=== PATIENT | female | born 1955 | race Caucasian/White ===

== ENCOUNTER 2019-11-14 09:08 | Outpatient (CLI) | payer MEDICARE, BC ==
--- NOTE | 2019-11-14 14:06 | RAD ---
EXAM: Chest 2 views: HISTORY: Preoperative evaluation COMPARISON: None. FINDINGS: Heart size:Borderline Lungs:Clear of acute process. Atherosclerotic changes of the aorta. No confluent lobar pneumonia, overt edema, pleural effusion, pneumothorax, or other significant acute process. IMPRESSION: Mild atherosclerosis of the aorta. No acute intrathoracic disease.
[2019-11-14 14:13] LABS: #Basophils 0.1 thou/uL (0.0-0.2); #Eosinphils 0.1 thou/uL (0.0-0.7); #Lymphocytes 4.4 thou/uL (1.20-3.40); #Monocytes 0.8 thou/uL (0.11-0.59); %Basophils 0.4 % (0.0-1.0); %Eosinophils 1.1 % (0.0-10.0); %Lymphocytes 32.9 % (21.0-51.0); %Monocytes 6.2 % (0.0-10.0); %Neutrophils 59.4 % (42.0-75.0); Hemoglobin 13.9 g/dL (12.0-16.0); Mean Corpuscular Hemoglobin 31.4 pg (27.0-31.0); Mean Corpuscular Volume 92.5 fL (78.0-98.0); Mean Platelet Volume 8.4 fL (7.4-10.4); Platelet Count 248 thou/uL (130-400); Red Blood Cell (RBC) Count 4.43 mill/uL (4.20-5.40); White Blood Cell (WBC) Count 13.4 thou/uL (4.8-10.8)
[2019-11-14 14:17] LABS: INR-International Normal Ratio 0.9
[2019-11-14 14:33] LABS: Bilirubin Negative (Negative); Blood, Urine Trace (Negative); Clarity Clear (Clear); Glucose, Urine (Dipstick) Normal (Negative); Leukocyte Negative Leu/uL (Negative); Nitrite Negative (Negative); Protein, Urine (Dipstick) Negative (Neg-Trace); RBC/HPF 0-3 HPF (0-3); Squamous Epithelial 0-3 HPF (0-3); Urobilinogen Normal mg/dL (Less than 2); WBC/HPF 0-3 HPF (0-3)
[2019-11-14 14:34] LABS: Anion Gap 9 mmol/L (10-20); BUN (Urea Nitrogen) 10 mg/dL (9.8-20.1); Calc. Creatinine Clearance 0 mL/min (70-130); Calcium 9.3 mg/dL (7.8-10.44); Carbon Dioxide 29 mmol/L (23-31); Chloride 104 mmol/L (98-107); Estimated GFR-MDRD 90; Glucose 92 mg/dL (80-115); Potassium 4.1 mmol/L (3.5-5.1); Sodium 138 mmol/L (136-145)
[2019-11-14 14:53] LABS: Bacteria/HPF 1+ HPF (None Seen)
== END 2019-11-14 09:09 | disposition home or self-care (01) ==
LOC: LABBT 09:08
PROVIDERS: ATTEND Orthopaedic Surgery
DX: Z01.818 Encounter for other preprocedural examination (principal); M17.12 Unilateral primary osteoarthritis, left knee; I70.0 Atherosclerosis of aorta
CPT/HCPCS: 71046; 80048; 81001; 85025; 85610; 87081; 93005; 93010

== ENCOUNTER 2019-11-25 07:04 | Day surgery (SDC) | payer MEDICARE, BC ==
[2019-11-14 13:01] VITALS: BMI 27.3
[2019-11-25] MEDS ORDERED: Sodium Chloride 0.9% 100 ML ONE ×2 (08:02→12:13)
[2019-11-25] MEDS ORDERED: Tranexamic Acid 1,000 MG/10 ML VIAL ONE ×2 (08:02→12:12)
[2019-11-25] MEDS ORDERED: Vancomycin 1.5 GRAM/300 ML BAG 1.5 GM/300 ML BAG ONE (08:02)
[2019-11-25] MEDS ORDERED: Midazolam HCl 2 mg/2 ml Vial ONE (08:03)
[2019-11-25] MEDS ORDERED: Fentanyl 100 MCG/2 ML VIAL ONE ×5 (08:03→11:59)
[2019-11-25] MEDS ORDERED: Bupivacaine PF 0.5% 30 ML VIAL ONE (09:24)
[2019-11-25] MEDS ORDERED: Ondansetron PF 4 MG/2 ML Vial ONE (09:28)
[2019-11-25] MEDS ORDERED: Lidocaine 1% PF 5 ML VIAL ONE (09:28)
[2019-11-25] MEDS ORDERED: Ketorolac Tromethamine 30 MG/ML VIAL ONE (09:28)
[2019-11-25] MEDS ORDERED: Metoclopramide HCl 10 MG/2 ML VIAL ONE (09:28)
[2019-11-25] MEDS ORDERED: Bupivacaine HCl 0.5%/Epinephrine 1:200,000/PF 30 ml Vial ONE (09:28)
[2019-11-25] MEDS ORDERED: Ropivacaine 0.2% HCl/PF (40 MG/20 ML VIAL) ONE (09:28)
[2019-11-25] MEDS ORDERED: PROPOFOL 200 MG/20 ML VIAL ONE (09:28)
[2019-11-25] MEDS ORDERED: Succinylcholine Chloride 20 MG/ML 10 ml SYRINGE FS ONE (09:28)
[2019-11-25] MEDS ORDERED: Ropivacaine HCl/PF 250 ML in Premix Bag 1 BAG NERVE BLCK SCH (09:56)
[2019-11-25] MEDS ORDERED: Zolpidem Tartrate 5 MG TAB PO PRN ×2 (09:56→10:04)
[2019-11-25] MEDS ORDERED: Ondansetron PF 4 MG/2 ML Vial IVP PRN (09:56)
[2019-11-25] MEDS ORDERED: Acetaminophen 325 MG TAB PO PRN ×2 (09:56→10:04)
[2019-11-25] MEDS ORDERED: traMADol HCl 50 MG TAB PO PRN (09:56)
[2019-11-25] MEDS ORDERED: HYDROcodone/Acetaminophen 10/325 mg Tablet PO PRN (09:56)
[2019-11-25] MEDS ORDERED: Promethazine HCl 25 MG/ML VIAL IM PRN ×3 (09:56→11:13)
[2019-11-25] MEDS ORDERED: Fentanyl 100 MCG/2 ML VIAL IV PRN (09:57)
[2019-11-25] MEDS ORDERED: diphenhydrAMINE 25 MG CAP PO PRN (10:04)
[2019-11-25] MEDS ORDERED: Pramipexole Di-HCl 0.25 MG TAB PO PRN (10:06)
[2019-11-25] MEDS ORDERED: Tranexamic Acid 1,000 MG in Sodium Chloride 0.9% 100 ML IVPB SCH (10:15)
[2019-11-25] MEDS ORDERED: Ondansetron HCl/PF 4 MG/2 ML Vial IVP PRN (11:13)
[2019-11-25] MEDS ORDERED: Promethazine HCl 25 MG/ML VIAL SLOW IVP PRN (11:13)
--- NOTE | 2019-11-25 12:09 | OP ---
DATE OF PROCEDURE: 11/25/2019 INSULATION AND FLOORING ASSEMBLER: Killian Mar PA-C PREOPERATIVE DIAGNOSIS: Left knee osteoarthrosis. POSTOPERATIVE DIAGNOSIS: Left knee osteoarthrosis. PROCEDURE PERFORMED: Left total knee replacement using CogniK pinless navigation. ESTIMATED BLOOD LOSS: Minimal. COMPLICATIONS: None. ANESTHESIA: The patient did have a general anesthetic as well as a preoperative block. IMPLANTS: On the left knee, Triathlon total knee system, a size 4 cruciate-retaining left femur, size 4 primary tibial baseplate, 4 x 9 mm CS X3 tibial bearing and an asymmetric 29 x 9 X3 patella. DISPOSITION: She went to recovery room in stable condition. INDICATIONS: This is a 64-year-old female, who has dealt with knee arthritis for years and at this time wished to have her knee replaced. PROCEDURE IN DETAIL: After all appropriate consent forms were explained and signed, the patient was taken back to the operating room and at this time was given general anesthetic. Once the level of anesthesia was appropriate, a well-padded tourniquet was placed on the left leg, and the leg was then prepped and draped in standard surgical fashion. The limb was exsanguinated and tourniquet taken up to 300 mmHg. Midline incision was made with a 10 blade down through the skin and subcutaneous tissue. Bovie electrocautery was used to coagulate any brisk venous bleeding. A new blade was used to make a medial parapatellar arthrotomy. Small subperiosteal release was performed medially and excess fat pad was removed. The knee was flexed up to gain access to the femur. The femur was navigated and distal femoral resection was made. Epicondylar access was used to align our sizing jig and this was pinned in place. We sized our femur to be a size 4 cruciate-retaining left femur. 4:1 cutting block was applied and pinned. Anterior and posterior chamfer cuts were then made. We navigated out our proximal tibia and made our proximal tibial resection. Spreaders were used to remove any posterior osteophytes off the back of the femur as well as remaining meniscal tissue. A long alignment caro was then used to achieve correct rotation of our tibial baseplate and a size 4 primary tibial baseplate was chosen. This was pinned in place. We trialed the polyethylene and a 4 x 9 mm CS X3 tibial bearing polyethylene gave us full extension and good stability throughout range of motion. Two towel clips and a saw were used to cut our patella. Three lug nuts were drilled and an asymmetric 29 x 9 X3 patella was trialed which sat nicely in the trochlear groove. We then drilled our femur and punched our tibia. All components were removed. The knee was thoroughly irrigated and dried. Cement was mixed into the cement gun on the back table. Components were then placed. The knee was held out in full extension until the cement had dried. All excess bone cement was removed. Multiple #2 Vicryl stitches as well as a Quill were used to close our extensor mechanism. 0 Quill followed by a running Monoderm was then used to close the skin. Surgicel glue was then used on the skin. Once this had dried, soft tissue dressing was applied to the limb, tourniquet was let down, and the toes pinked up nicely. The patient was then awakened and taken to the recovery room in stable condition. All counts were correct at the end of the case. The patient did receive preoperative IV antibiotics. The patient was injected with Marcaine for postoperative pain relief. Job ID: [id number]
[2019-11-25] MEDS: Sodium Chloride 0.9% 1,000 ML IV SCH ×2 (13:20→22:44)
[2019-11-25] MEDS: Ketorolac Tromethamine 30 MG/ML VIAL IVP SCH ×3 (15:36→23:20)
[2019-11-25] MEDS: traMADol HCl 50 MG TAB PO PRN ×2 (15:37→23:25)
[2019-11-25] MEDS: CEFAZOLIN 2 GM in Premix Bag 1 BAG IVPB SCH ×2 (15:37→23:19)
--- NOTE | 2019-11-25 17:56 | PDOC.HOSPP ---
- Subjective Encounter Date: 11/25/19 Encounter Time: 16:00 Subjective: pt is admitted for left total knee replacement I am consulted for medical management, Patient seen and examined. No new complaints. - Objective Vital Signs & Weight: Vital Signs (12 hours) Temp Pulse Resp BP Pulse Ox 11/25/19 13:20 97.1 F L 49 L 18 155/63 H 100 Weight Weight 185 lb I&O: 11/24/19 11/25/19 11/26/19 06:59 06:59 06:59 Intake Total 120 Balance 120 Additional Labs: pre operative labs reviewed Hospitalist ROS - Review of Systems ENT: denies: ear pain, ear discharge, nose pain, nose discharge, nose congestion , mouth pain, mouth swelling, throat pain, throat swelling, other Respiratory: denies: cough, dry, shortness of breath, hemoptysis, SOB with excertion, pleuritic pain, sputum, wheezing, other Cardiovascular: denies: chest pain, palpitations, orthopnea, paroxysmal noc. dyspnea, edema, light headedness, other Gastrointestinal: denies: nausea, vomiting, abdominal pain, diarrhea, constipation, melena, hematochezia, other Genitourinary: denies: dysuria, frequency, incontinence, hematuria, retention, other Musculoskeletal: denies: neck pain, shoulder pain, arm pain, back pain, hand pain, leg pain, foot pain, other - Medication Medications: Active Medications Generic Name Dose Route Start Last Admin Trade Name Freq PRN Reason Stop Dose Admin Cefazolin Sodium/Dextrose 2 gm 50 mls @ 100 mls/hr 11/25/19 16:00 11/25/19 15 :37 / Device IVPB 11/26/19 00:28 50 mls [id number] NOEL Administration Sodium Chloride 1,000 mls @ 100 mls/hr 11/25/19 10:15 11/25/19 13:20 Normal Saline 0.9% IV Not Given .Q10H NOEL Ketorolac Tromethamine 30 mg 11/25/19 12:00 11/25/19 17:14 Toradol IVP 11/27/19 06:01 30 mg Q6HR NOEL Administration Tramadol HCl 100 mg 11/25/19 09:56 11/25/19 15:37 Ultram PO 100 mg Q6H PRN Administration Moderate Pain 4-6 - Exam General Appearance: NAD, awake alert Eye: PERRL, anicteric sclera ENT: normocephalic atraumatic, no oropharyngeal lesions Neck: supple, symmetric, no JVD, no thyromegaly Heart: RRR, no murmur, no gallops, no rubs Respiratory: CTAB, no wheezes, no rales Gastrointestinal: soft, non-tender, non-distended, normal bowel sounds Extremities: no cyanosis, no clubbing Extremities - other findings: left knee with dressing, nerve block in place Skin: normal turgor, no lesions Neurological: cranial nerve grossly intact, no focal deficits Musculoskeletal: normal tone, normal strength Psychiatric: normal affect, normal behavior, A&O x 3 Hosp A/P (1) Status post total left knee replacement Code(s): Z96.652 - PRESENCE OF LEFT ARTIFICIAL KNEE JOINT Status: Acute (2) Restless leg syndrome Status: Chronic (3) Osteoarthritis Code(s): M19.90 - UNSPECIFIED OSTEOARTHRITIS, UNSPECIFIED SITE Status: Chronic - Plan old records reviewed/req, plan discussed w/ family, PT/OT medication reviewed, symptomatic care, supportive care, consider ch removal as per protocol, PT/OT as per [facility] protocol Home medication reconciled, discussed with family nerve block as per anesthesia, aspirin for DVT prophylaxis pain control with pain meds as tolerated.
[2019-11-25] MEDS ORDERED: Vancomycin HCl 1.5 GM in Sodium Chloride 0.9% 250 ML 300 ML IVPB SCH (20:00)
[2019-11-25] MEDS: Aspirin 81 mg Enteric Coated Tablet PO SCH (20:22)
[2019-11-26] MEDS: HYDROcodone/Acetaminophen 10/325 mg Tablet PO PRN ×2 (02:47→10:51)
[2019-11-26] MEDS: Ondansetron PF 4 MG/2 ML Vial IVP PRN ×2 (03:11→13:00)
[2019-11-26] MEDS: Ketorolac Tromethamine 30 MG/ML VIAL IVP SCH ×4 (05:49→23:43)
[2019-11-26 06:14] LABS: Hemoglobin 10.5 g/dL (12.0-16.0); Mean Corpuscular HGB CONC 33.5 g/dL (32.0-36.0); Mean Corpuscular Hemoglobin 31.2 pg (27.0-31.0); Mean Corpuscular Volume 93.1 fL (78.0-98.0); Mean Platelet Volume 8.6 fL (7.4-10.4); Platelet Count 195 thou/uL (130-400); RBC Distribution Width 11.1 % (11.5-14.5); Red Blood Cell (RBC) Count 3.35 mill/uL (4.20-5.40); White Blood Cell (WBC) Count 17.1 thou/uL (4.8-10.8)
[2019-11-26] MEDS: Multivitamin W/ Minerals 1 TAB PO SCH (08:45)
[2019-11-26] MEDS: Aspirin 81 mg Enteric Coated Tablet PO SCH ×2 (08:45→20:23)
[2019-11-26] MEDS: Senokot S 8.6-50 MG TAB PO SCH ×2 (08:45→20:23)
[2019-11-26] MEDS: Ferrous Gluconate 324 MG TAB PO SCH ×2 (08:45→18:09)
[2019-11-26] MEDS: traMADol HCl 50 MG TAB PO PRN ×2 (08:46→16:43)
[2019-11-26] MEDS: Sodium Chloride 0.9% 1,000 ML IV SCH ×2 (08:51→10:25)
--- NOTE | 2019-11-26 12:12 | PDOC.HOSPP ---
- Subjective Encounter Date: 11/26/19 Encounter Time: 09:15 Subjective: no chest pain or sob or palp mild pain in her knee ambulated 60ft yesterday - Objective Vital Signs & Weight: Vital Signs (12 hours) Temp Pulse Resp BP Pulse Ox 11/26/19 07:40 95 11/26/19 07:21 98.2 F 67 18 109/54 L 98 11/26/19 03:16 98.3 F 63 16 106/59 L 95 11/26/19 00:30 98.2 F 62 17 143/70 H 95 Weight Weight 185 lb I&O: 11/25/19 11/26/19 11/27/19 06:59 06:59 06:59 Intake Total 960 300 Output Total 900 Balance 60 300 Result Diagrams: 11/26/19 05:17 Hospitalist ROS - Medication Medications: Active Medications Generic Name Dose Route Start Last Admin Trade Name Freq PRN Reason Stop Dose Admin Hydrocodone Bitart/Acetaminophen 1 tab 11/25/19 09:56 11/25/19 20:21 [place] 10/325 PO 1 tab Q4H PRN Administration Pain (1-3) Hydrocodone Bitart/Acetaminophen 2 tab 11/25/19 09:56 11/26/19 10:51 [place] 10/325 PO 2 tab Q4H PRN Administration PAIN (4-6) Aspirin 81 mg 11/25/19 21:00 11/26/19 08:45 Ecotrin PO 81 mg BID NOEL Administration Ferrous Gluconate 324 mg 11/26/19 08:00 11/26/19 08:45 Fergon PO 324 mg BID-WM NOEL Administration Ropivacaine 250 ml/ Device 250 mls @ 10 mls/hr 11/25/19 09:56 11/26/19 10:57 NERVE BLCK 11/28/19 09:55 250 mls INF NOEL Administration Sodium Chloride 1,000 mls @ 100 mls/hr 11/25/19 10:15 11/26/19 10:25 Normal Saline 0.9% IV Not Given .Q10H NOLE Iron/Minerals/Multivitamins 1 tab 11/26/19 09:00 11/26/19 08:45 Theragran M PO 1 tab DAILY NOEL Administration Ketorolac Tromethamine 30 mg 11/25/19 12:00 11/26/19 05:49 Toradol IVP 11/27/19 06:01 30 mg Q6HR NOEL Administration Ondansetron HCl 4 mg 11/25/19 10:04 11/26/19 03:11 Zofran IVP 4 mg Q6H PRN Administration Nausea/Vomiting Senna/Docusate Sodium 2 tab 11/26/19 09:00 11/26/19 08:45 Senokot S PO 2 tab BID NOEL Administration Tramadol HCl 100 mg 11/25/19 09:56 11/26/19 08:46 Ultram PO 100 mg Q6H PRN Administration Moderate Pain 4-6 - Exam General Appearance: awake alert Eye: PERRL, anicteric sclera ENT: no oropharyngeal lesions, moist mucosa Neck: supple, no JVD Heart: RRR, no murmur Respiratory: no wheezes, no rales Gastrointestinal: soft, non-tender, non-distended, normal bowel sounds Extremities: no edema Neurological: cranial nerve grossly intact, no focal deficits Psychiatric: normal affect, A&O x 3 Hosp A/P (1) Status post total left knee replacement Code(s): Z96.652 - PRESENCE OF LEFT ARTIFICIAL KNEE JOINT Status: Acute (2) Osteoarthritis Code(s): M19.90 - UNSPECIFIED OSTEOARTHRITIS, UNSPECIFIED SITE Status: Chronic Qualifiers: Osteoarthritis location: multiple joints Osteoarthritis type: primary Qualified Code(s): M15.0 - Primary generalized (osteo)arthritis (3) Restless leg syndrome Status: Chronic - Plan hemostable is recovering well post surgery continue asp bid, mirapex on ropivacaine nr block, fentanyl, toradol prn
[2019-11-27] MEDS: Sodium Chloride 0.9% 1,000 ML IV SCH ×2 (03:51→13:40)
[2019-11-27] MEDS: traMADol HCl 50 MG TAB PO PRN ×3 (03:54→16:39)
[2019-11-27 05:44] LABS: Hemoglobin 9.7 g/dL (12.0-16.0); Mean Corpuscular HGB CONC 34.8 g/dL (32.0-36.0); Mean Corpuscular Volume 92.1 fL (78.0-98.0); Mean Platelet Volume 8.1 fL (7.4-10.4); Platelet Count 209 thou/uL (130-400); Red Blood Cell (RBC) Count 3.01 mill/uL (4.20-5.40); White Blood Cell (WBC) Count 19.2 thou/uL (4.8-10.8)
[2019-11-27] MEDS: Ketorolac Tromethamine 30 MG/ML VIAL IVP SCH (06:15)
[2019-11-27] MEDS: Ferrous Gluconate 324 MG TAB PO SCH (08:01)
[2019-11-27] MEDS: Senokot S 8.6-50 MG TAB PO SCH (08:01)
[2019-11-27] MEDS: Aspirin 81 mg Enteric Coated Tablet PO SCH (08:01)
[2019-11-27] MEDS: Multivitamin W/ Minerals 1 TAB PO SCH (08:01)
--- NOTE | 2019-11-27 09:17 | ULT ---
VENOUS DOPPLER ULTRASOUND OF THE LEFT LOWER EXTREMITY: Date: 11/27/2019 HISTORY: Left lower extremity pain. TECHNIQUE: Hernandez scale ultrasound with color flow and spectral Doppler imaging of the deep venous system of the l eft lower extremity is performed. FINDINGS: There is good flow, compression, and augmentation noted in the left common femoral, femoral, deep fem oral, popliteal, posterior tibial, and greater saphenous veins. IMPRESSION: No evidence of deep venous thrombosis in the left lower extremity. POS: [facility]
--- NOTE | 2019-11-27 13:42 | PDOC.HOSPP ---
- Subjective Encounter Date: 11/27/19 Encounter Time: 09:00 Subjective: no sob or pain is ambulating well - Objective Vital Signs & Weight: Vital Signs (12 hours) Temp Pulse Resp BP Pulse Ox 11/27/19 11:15 97.6 F 83 18 175/94 H 94 L 11/27/19 08:00 93 L 11/27/19 07:27 98.5 F 94 16 139/77 93 L 11/27/19 03:55 98.6 F 80 16 160/81 H 93 L Weight Admit Weight 185 lb Weight 185 lb I&O: 11/26/19 11/27/19 11/28/19 06:59 06:59 06:59 Intake Total 960 1640 Output Total 900 Balance 60 1640 Result Diagrams: 11/27/19 05:17 Hospitalist ROS - Medication Medications: Active Medications Generic Name Dose Route Start Last Admin Trade Name Freq PRN Reason Stop Dose Admin Hydrocodone Bitart/Acetaminophen 1 tab 11/25/19 09:56 11/25/19 20:21 [place] 10/325 PO 1 tab Q4H PRN Administration Pain (1-3) Hydrocodone Bitart/Acetaminophen 2 tab 11/25/19 09:56 11/26/19 10:51 [place] 10/325 PO 2 tab Q4H PRN Administration PAIN (4-6) Aspirin 81 mg 11/25/19 21:00 11/27/19 08:01 Ecotrin PO 81 mg BID NOEL Administration Ferrous Gluconate 324 mg 11/26/19 08:00 11/27/19 08:01 Fergon PO 324 mg BID-WM NOEL Administration Ropivacaine 250 ml/ Device 250 mls @ 10 mls/hr 11/25/19 09:56 11/26/19 10:57 NERVE BLCK 11/28/19 09:55 250 mls INF NOEL Administration Sodium Chloride 1,000 mls @ 100 mls/hr 11/25/19 10:15 11/27/19 03:51 Normal Saline 0.9% IV Not Given .Q10H NOEL Iron/Minerals/Multivitamins 1 tab 11/26/19 09:00 11/27/19 08:01 Theragran M PO 1 tab DAILY NOEL Administration Ondansetron HCl 4 mg 11/25/19 10:04 11/26/19 13:00 Zofran IVP 4 mg Q6H PRN Administration Nausea/Vomiting Senna/Docusate Sodium 2 tab 11/26/19 09:00 11/27/19 08:01 Senokot S PO 2 tab BID NOEL Administration Sodium Chloride 10 ml 11/25/19 10:04 11/26/19 18:01 Flush - Normal Saline IVF 10 ml PRN PRN Administration Saline Flush Tramadol HCl 100 mg 11/25/19 09:56 11/27/19 11:08 Ultram PO 100 mg Q6H PRN Administration Moderate Pain 4-6 Zolpidem Tartrate 5 mg 11/25/19 10:04 11/26/19 21:06 Ambien PO 5 mg HSPRN PRN Administration Insomnia - Exam General Appearance: awake alert Eye: PERRL, anicteric sclera ENT: no oropharyngeal lesions, moist mucosa Neck: supple, no JVD Heart: RRR, no murmur Respiratory: no wheezes, no rales Gastrointestinal: soft, non-tender, non-distended, normal bowel sounds Extremities: no cyanosis, no clubbing Neurological: cranial nerve grossly intact, no focal deficits Hosp A/P (1) Status post total left knee replacement Code(s): Z96.652 - PRESENCE OF LEFT ARTIFICIAL KNEE JOINT Status: Acute (2) Osteoarthritis Code(s): M19.90 - UNSPECIFIED OSTEOARTHRITIS, UNSPECIFIED SITE Status: Chronic Qualifiers: Osteoarthritis location: multiple joints Osteoarthritis type: primary Qualified Code(s): M15.0 - Primary generalized (osteo)arthritis (3) Restless leg syndrome Status: Chronic - Plan hemostable is recovering well post surgery continue asp bid, mirapex dc plan per ortho advice
[2019-11-27 15:42] VITALS: BP 168/83; TEMP 98.9
== END 2019-11-27 17:09 | disposition home or self-care (01) ==
LOC: SDC 07:04 → SJJU 13:18 → SDC 11-27 17:09
PROVIDERS: ATTEND Orthopaedic Surgery
PROC: 0SRD0J9 Replacement of Left Knee Joint with Synthetic Substitute, Cemented, Open Approach (ICD-10-PCS; principal; 2019-11-25)
PROC: 8E0YXBZ Computer Assisted Procedure of Lower Extremity (ICD-10-PCS; 2019-11-25)
PROC: 3E0T3BZ Introduction of Anesthetic Agent into Peripheral Nerves and Plexi, Percutaneous Approach (ICD-10-PCS; 2019-11-25)
DX: M17.12 Unilateral primary osteoarthritis, left knee (principal); G89.18 Other acute postprocedural pain; G25.81 Restless legs syndrome; Z79.899 Other long term (current) drug therapy; Z88.5 Allergy status to narcotic agent
CPT/HCPCS: 20985; 27447; 64445; 64447; 85027; 93971; 97116 ×3; 97139 ×2; 97150 ×2; 97530 ×3; 98961; C1713; C1776; 36415; J0670; J0690; J1885; J2001; J2250; J2405; J2704; J2765; J2795; J3010; J3370; J3490; J7050; S0020

== ENCOUNTER 2020-01-12 17:43 | Inpatient (IN) | payer MEDICARE, BC ==
[2020-01-12] MEDS ORDERED: Morphine 4 MG/ML VIAL ONE (17:57)
[2020-01-12 18:22] LABS: INR-International Normal Ratio 0.9; PTT 26.2 SEC (22.9-36.1); Prothrombin Time 12.6 SEC (12.0-14.7)
--- NOTE | 2020-01-12 18:42 | ULT ---
EXAM: Left lower extremity venous Doppler US HISTORY: left lower extremity edema and pain FINDINGS: Grayscale, color-flow, Doppler evaluation, spectral analysis of the left lower extremity venous struc tures is performed with 2-D imaging. The left common femoral, superficial femoral, popliteal, posterior tibial, proximal greater saphenous and profunda femoral veins are imaged. There is normal luminal compressibility, flow, and augmentation the visualized deep venous structures of the left lower extremity. Incidental note is made of multiple prominent left inguinal lymph nodes, measuring up to 2 cm. IMPRESSION: No evidence of a deep vein thrombosis in the left lower extremity.
[2020-01-12] MEDS ORDERED: Morphine 2 MG/ML SYRINGE SLOW IVP PRN (19:09)
[2020-01-12] MEDS ORDERED: TETANUS AND DIPHTHERIA TOX/PF 0.5 ML DISP.SYRIN IM SCH (19:15)
[2020-01-12] MEDS ORDERED: Communication Order-Pharmacy FS SCH (19:15)
[2020-01-12] MEDS ORDERED: cefTRIAXone\\ROCEPHIN 2 GM in Sodium Chloride 0.9% 100 ML IVPB SCH (20:00)
--- NOTE | 2020-01-12 20:18 | RAD ---
PORTABLE CHEST ONE VIEW: Date: 01-12-2020 Time: 6:51 p.m. History: Pre-op evaluation. FINDINGS: Comparison made with 11-14-2019. The heart size is enlarged. No lobar consolidation, pneumothoraces, wandy pulmonary edema or pleural effusions are seen. IMPRESSION: No acute process. POS: [facility]
[2020-01-12] MEDS: Gabapentin 300 MG CAP PO SCH (20:49)
[2020-01-12] MEDS: HYDROcodone/Acetaminophen 10/325 mg Tablet PO PRN (20:49)
[2020-01-12] MEDS: Pramipexole Di-HCl 0.25 MG TAB PO PRN (22:04)
[2020-01-12 22:24] VITALS: BMI 27.3
--- NOTE | 2020-01-13 00:48 | HP ---
BRIEF HISTORY OF PRESENT ILLNESS: The patient is a pleasant 64-year-old lady, who is now status post total knee arthroplasty with Dr. Pavel Evangelista on November 25, 2019. The patient has had a relatively uneventful postoperative course except for some hyperesthesia of the anterior knee, thought to be possibly secondary to complex regional pain syndrome. The patient was last seen in the office with Dr. Evangelista approximately four days ago, at which time, she had range of motion from full extension to 80 degrees of flexion with this hypersensitivity at the anterior knee. Approximately 48 hours ago, she developed some low-grade fever and some mild redness at the anterior knee and over the last 24 hours, the redness has increased along the anterior knee, now with severe bruising and flattening of the skin right around her incision site anteriorly. She denies fevers or any current chills. X-rays were obtained that showed a well-positioned total knee arthroplasty with no obvious effusion and an attempted aspiration in the emergency room showed no fluid within the knee. She does have an elevated white count of 18.8. She has a sedimentation rate of 5 and a C-reactive protein of 0.72. At this time, it appears she has a cellulitic infection at the anterior knee and as such is being admitted for IV antibiotics. PAST MEDICAL HISTORY: Remarkable for a squamous cell carcinoma of the back, restless legs syndrome, osteoarthritis, stress incontinence. PAST SURGICAL HISTORY: Includes hysterectomy, excision of skin cancer, vein strippings, knee arthroscopy, and most recently knee replacement. MEDICATIONS: Include: 1. Hydrocodone. 2. Gabapentin. 3. Hormone replacement. 4. She did receive a dose of vancomycin and ceftriaxone in the emergency room in [place] earlier today. FAMILY HISTORY: Noncontributory for this admission. SOCIAL HISTORY: She is a nonsmoker and does drink alcohol socially. Denies drug use. ALLERGIES: NO KNOWN DRUG ALLERGIES. REVIEW OF SYSTEMS: Fever 48 hours ago, but no current fevers, chills, or sweats. She denies cough, shortness of breath or chest pain. She denies numbness or tingling in this lower extremity. PHYSICAL EXAMINATION: VITAL SIGNS: The emergency room, she was found to have a temperature of 98.1 degrees Fahrenheit orally, a heart rate of 68, a respiratory rate of 16, and a blood pressure 159/63. HEENT: Atraumatic and normocephalic. HEART: Shows a regular rate and rhythm without murmur. LUNGS: Clear to auscultation bilaterally. Chest wall is nontender. ABDOMEN: Soft and nontender. EXTREMITIES: Remarkable for this left lower extremity with a well-healed midline anterior knee incision from her total knee arthroplasty. She does have some mild edema and pitting edema in the lower leg extending down into the foot. She is able to wiggle her ankle and toes normally. She has intact subjective sensation. She has a large patch of erythematous skin anteriorly that extends over into the lateral gutter as well. The central portion is with blackened skin consistent with almost a very deep bruised type appearance. There is no active drainage from this knee whatsoever except just some mild bloody output from the prior arthrocentesis attempt site. I do not appreciate ascending lymphangitis. LABORATORY DATA: She was found to have a white count of 18.8, a hematocrit of 41.2, and a platelet count of 285,000. She has a sedimentation rate of 5 and a C-reactive protein of 0.72. X-rays are as stated in the history of present illness. ASSESSMENT: A 64-year-old lady with increasing pain and erythema at the anterior knee with normal inflammatory markers. At this time, she has a presumed cellulitis of unknown etiology. PLAN: This evening, I did speak with her primary orthopedic surgeon regarding this current knee examination. At this time, we will admit the patient for IV antibiotics and repeat clinical checks. Should she develop any fluctuance or obvious surgical lesions, we will then proceed with appropriate treatment. In the meantime, continue with the IV antibiotics. The patient appears comfortable with this plan. Job ID: [id number]
[2020-01-13] MEDS: Vancomycin HCl 1.25 GM in Sodium Chloride 0.9% 250 ML 250 ML IVPB SCH ×2 (04:47→18:01)
[2020-01-13] MEDS: HYDROcodone/Acetaminophen 10/325 mg Tablet PO PRN ×3 (05:09→20:00)
[2020-01-13 05:28] LABS: #Basophils 0.1 thou/uL (0.0-0.2); #Eosinphils 0.3 thou/uL (0.0-0.7); #Monocytes 0.9 thou/uL (0.11-0.59); #Neutrophils 5.4 thou/uL (1.40-6.50); %Basophils 0.9 % (0.0-1.0); %Eosinophils 2.3 % (0.0-10.0); %Lymphocytes 43.1 % (21.0-51.0); %Monocytes 7.4 % (0.0-10.0); %Neutrophils 46.3 % (42.0-75.0); Hemoglobin 10.5 g/dL (12.0-16.0); Mean Corpuscular HGB CONC 31.8 g/dL (32.0-36.0); Mean Corpuscular Hemoglobin 28.9 pg (27.0-31.0); Mean Platelet Volume 7.5 fL (7.4-10.4); Platelet Count 194 thou/uL (130-400); RBC Distribution Width 12.6 % (11.5-14.5); Red Blood Cell (RBC) Count 3.64 mill/uL (4.20-5.40); White Blood Cell (WBC) Count 11.7 thou/uL (4.8-10.8)
[2020-01-13] MEDS: Gabapentin 300 MG CAP PO SCH ×3 (08:58→20:00)
[2020-01-13] MEDS: CeleCOXIB 100 MG CAP PO SCH ×2 (08:58→20:00)
[2020-01-13] MEDS ORDERED: Estradiol 1 MG TAB PO SCH (09:00)
[2020-01-13] MEDS ORDERED: Enoxaparin Sodium 30 MG/0.3 ML SYRINGE SC SCH (13:45)
[2020-01-13] MEDS ORDERED: Enoxaparin Sodium 40 MG/0.4 ML SYRINGE SC SCH (14:30)
[2020-01-13] MEDS: Cefepime 2 GM in Sodium Chloride 0.9% 100 ML IVPB SCH (17:02)
[2020-01-13] MEDS: Pramipexole Di-HCl 0.25 MG TAB PO PRN (17:21)
--- NOTE | 2020-01-13 22:11 | CON ---
DATE OF CONSULTATION: 01/13/2020 REASON FOR CONSULTATION: Pain and inflammatory changes left TKR site. HISTORY OF PRESENT ILLNESS: A 64-year-old who has a history of left knee replacement on November 28, approximately 3-1/2 to 4 weeks ago, who developed stiffness and redness in the anterior aspect of the left TKR site, after complete healing of the incision, had some low-grade temperature elevation as well. She has been seen in the emergency room and a tap of the left knee did not yield any fluid and she has been placed on broad-spectrum antimicrobial coverage. Currently, she denies any headaches, visual symptoms, sore throat, odynophagia or dysphagia. No cough or sputum production. No chest pain. No abdominal pain or diarrhea. No genitourinary symptoms. No bleeding. PAST MEDICAL HISTORY: Left TKR. ALLERGIES: NONE. MEDICATIONS: At the moment she is on, 1. Rocephin. 2. Vancomycin. 3. Celebrex. 4. Lovenox. 5. Estrace. 6. Neurontin. FAMILY HISTORY: Noncontributory. SOCIAL HISTORY: She is a , has one child and retired. Lives by herself close to [facility]. Never smoked. Drinks occasionally. She has one cat, but she does not remember being scratched or bitten by the animal. PHYSICAL EXAMINATION: VITAL SIGNS: With a T-max 98, blood pressure 140/70, pulse 56, respirations 14 , O2 saturation 98. SKIN: Shows the area of erythema with bruising in the anterior segment of the left knee skin associated with tenderness and moderate swelling. The patient has no lymphadenopathy. HEENT: Unremarkable. NECK: Supple. LUNGS: Symmetric. Clear breath sounds. HEART: S1 and S2, regular rate without murmurs. No S3 or S4. ABDOMEN: Soft, not distended or tender. No ascites. No bladder distention. EXTREMITIES: No other joint inflammatory process. The range of motion is 0-80 in the left knee. Minimal pain elicited. Pulses are 1+ in dorsalis pedis and the area of tenderness is restricted to the anterior knee site. She has no pain on palpation of the lateral aspect and medial aspect of the left TKR side. NEUROLOGIC: Cognitive function appears to be intact. Neuro exam nonfocal. LABORATORY DATA: White cell count 11.7, hemoglobin 10.5, platelets 194 with a normal differential. INR 0.9. CRP was 0.7, now 1.38. The recent chemistry from 01/11 showed a creatinine 0.79, sodium 138. Liver profile normal. Albumin 4.5. IMAGING STUDIES: Chest x-ray did not show any infiltrates and she had a duplex ultrasound with no evidence of deep vein thrombosis. ASSESSMENT: Recent total knee replacement with inflammatory changes in the anterior aspect of the total knee replacement skin with bruising, erythema, tenderness. DISCUSSION: The evidence at hand argues in favor of an infection of the structures surrounding the joint in the anterior compartment rather than within the joint itself. This includes the dry attempt at an arthrocentesis which was attempted in the emergency room. Dr. Evangelista has considered the possibility of prepatellar bursitis and that is within the realm of possibilities. A deeper involvement is not ruled out however. Usual pathogens including Staphylococcus aureus, MRSA, streptococci, coagulase-negative Staph, Propionibacterium species and gram- negative rods is considered. We will switch her to cefepime which has a broader coverage for gram negatives. Continue vancomycin, target trough 15-20 mcg/mL. Depending on clinical progress, the patient may need I and D of the area. The worst case scenario would obviously be the need to remove the implant. In terms of imaging studies, no imaging studies would be decisive so as discussed by Dr. Evangelista. Job ID: [id number] MTDD
[2020-01-14] MEDS: HYDROcodone/Acetaminophen 10/325 mg Tablet PO PRN ×4 (01:20→18:15)
[2020-01-14] MEDS: Cefepime 2 GM in Sodium Chloride 0.9% 100 ML IVPB SCH ×2 (03:39→14:53)
[2020-01-14] MEDS: Vancomycin HCl 1.25 GM in Sodium Chloride 0.9% 250 ML 250 ML IVPB SCH (04:36)
[2020-01-14 05:01] LABS: #Basophils 0.1 thou/uL (0.0-0.2); #Eosinphils 0.4 thou/uL (0.0-0.7); #Lymphocytes 4.8 thou/uL (1.20-3.40); #Monocytes 0.7 thou/uL (0.11-0.59); #Neutrophils 5.1 thou/uL (1.40-6.50); %Basophils 0.9 % (0.0-1.0); %Eosinophils 3.3 % (0.0-10.0); %Lymphocytes 43.2 % (21.0-51.0); %Monocytes 6.3 % (0.0-10.0); %Neutrophils 46.3 % (42.0-75.0); Hemoglobin 10.4 g/dL (12.0-16.0); Mean Corpuscular HGB CONC 32.7 g/dL (32.0-36.0); Mean Corpuscular Hemoglobin 30.1 pg (27.0-31.0); Mean Corpuscular Volume 92.2 fL (78.0-98.0); Mean Platelet Volume 7.7 fL (7.4-10.4); Platelet Count 194 thou/uL (130-400); RBC Distribution Width 12.4 % (11.5-14.5); Red Blood Cell (RBC) Count 3.44 mill/uL (4.20-5.40)
[2020-01-14 05:17] LABS: Vancomycin, Trough 10.5 ug/mL
[2020-01-14] MEDS: CeleCOXIB 100 MG CAP PO SCH ×2 (08:55→21:04)
[2020-01-14] MEDS: Enoxaparin Sodium 30 MG/0.3 ML SYRINGE SC SCH ×2 (08:55→21:04)
[2020-01-14] MEDS: Gabapentin 300 MG CAP PO SCH ×3 (08:55→21:05)
--- NOTE | 2020-01-14 17:48 | PQF ---
CLINICAL DOCUMENTATION IMPROVEMENT CLARIFICATION FORM: ICD-10 Updated PLEASE DO AN ADDENDUM TO THE PROGRESS NOTE WITH ANY DOCUMENTATION UPDATES OR ADDITIONS AND CARRY THROUGH TO DC SUMMARY. THANK YOU. DATE: 01/14/20 ATTN: DR. MARTELL Please exercise your independent, professional judgment in responding to the clarification form. Clinical indicators are provided on the bottom of this form for your review Please check appropriate box(s) to clarify if the following diagnosis has been ruled in or ruled out: SEPSIS [ ] Ruled in diagnosis [ ] Continue to treat [ ] Resolved [ ] Ruled out diagnosis [ ] Improving [ ] Cannot rule out diagnosis [ ] Other diagnosis [ ] Unable to determine In addition, please specify: Present on Admission (POA): [ ] Yes [ ] No [ ] Unable to determine For continuity of documentation, please document condition throughout progress notes and discharge summary. Thank You. CLINICAL INDICATORS - SIGNS / SYMPTOMS / LABS / RESULTS AND LOCATION IN MR ER NOTE: "SEPSIS WITH CELLULITIS LEFT KNEE" WBC 18.8 (H&P) WBC /: 11.7 CRP / 0.72 CRP /: 1.38 RISKS: RECENT TKR NOVEMBER 24 CELLULITIS LEFT KNEE (H&P) TREATMENT: IV VANCOMYCIN (01/13) IV CEFEPIME (01/12-PRESENT) [employer](This form is maintained as a part of the permanent medical record) 2014 [employer] All Rights Reserved [email or web address] Cell [facility]
[2020-01-14] MEDS: Pramipexole Di-HCl 0.25 MG TAB PO PRN (18:15)
[2020-01-14] MEDS: Vancomycin 1.5 GRAM/300 ML BAG 1.5 GM in Premix Bag 1 BAG IVPB SCH (18:16)
--- NOTE | 2020-01-14 18:24 | PRG ---
DATE OF SERVICE: 01/14/2020 SUBJECTIVE: Feeling better, less pain. She was able to walk around and do some good physical therapy. No respiratory symptoms or abdominal pain. Voiding without difficulty. OBJECTIVE: VITAL SIGNS: She has been afebrile. BP 130/70, pulse 55, respirations 14, O2 saturation 97. GENERAL: Appears in no distress. LUNGS: Clear. HEART: S1-S2, regular rate. ABDOMEN: Soft, not distended. EXTREMITIES: The left knee has less swelling and the erythema has almost completely resolved. There is still that area of darker discoloration of the skin which probably reflects bruising of the area, a little bit of bleeding in the subcutaneous tissues. LABORATORY DATA: The white cell count is 11, hemoglobin 10, platelets 194. CRP is 1.38 from yesterday, not today. Microbiology; we do not have any positivity here of microbiology studies. ASSESSMENT AND DISCUSSION: Recent total knee replacement with inflammatory changes in the anterior aspect of the site with bruising, erythema, and some tenderness which has improved quite significantly since initiation of antimicrobial therapy. The differential diagnosis is a superficial versus a deep infection. The evidence suggests more of a superficial and the intent is to continue IV antimicrobials for a while if she is better tomorrow again. For that, she will need a PICC line, the agents will be cefepime and the vancomycin or similar combination. Job ID: [id number]
[2020-01-15] MEDS: Cefepime 2 GM in Sodium Chloride 0.9% 100 ML IVPB SCH ×2 (03:57→14:13)
[2020-01-15] MEDS: HYDROcodone/Acetaminophen 10/325 mg Tablet PO PRN ×3 (04:07→22:47)
[2020-01-15] MEDS: Vancomycin 1.5 GRAM/300 ML BAG 1.5 GM in Premix Bag 1 BAG IVPB SCH ×2 (04:45→16:57)
[2020-01-15 08:02] LABS: #Basophils 0.1 thou/uL (0.0-0.2); #Eosinphils 0.2 thou/uL (0.0-0.7); #Lymphocytes 3.8 thou/uL (1.20-3.40); #Monocytes 0.8 thou/uL (0.11-0.59); #Neutrophils 6.2 thou/uL (1.40-6.50); %Basophils 0.6 % (0.0-1.0); %Eosinophils 2.2 % (0.0-10.0); %Lymphocytes 34.2 % (21.0-51.0); %Monocytes 7.3 % (0.0-10.0); %Neutrophils 55.6 % (42.0-75.0); Mean Corpuscular HGB CONC 32.5 g/dL (32.0-36.0); Mean Corpuscular Hemoglobin 29.6 pg (27.0-31.0); Mean Platelet Volume 7.6 fL (7.4-10.4); Platelet Count 207 thou/uL (130-400); RBC Distribution Width 12.4 % (11.5-14.5); Red Blood Cell (RBC) Count 3.71 mill/uL (4.20-5.40); White Blood Cell (WBC) Count 11.2 thou/uL (4.8-10.8)
--- NOTE | 2020-01-15 08:03 | PRG ---
DATE OF SERVICE: 01/14/2020 SUBJECTIVE: The patient today is feeling much better. Her pain level was decreased. She slept last night and is actually trying to do some motion of her knee and states it feels better when she is moving it today. PHYSICAL EXAMINATION: VITAL SIGNS: Today, she is afebrile. Her vital signs are stable. MUSCULOSKELETAL: As far as the knee is concerned, the purple discoloration was still noted anterior in the knee and swelling was significantly decreased. There is no area of fluid that can be felt. No area that was felt to be drainable at this time. She continues to not demonstrate an effusion in the knee. She has an intact straight leg raise and she has 40 to 50 degrees of motion today, which is not causing much of any problem. She does not demonstrate any significant swelling in her lower extremities and does not have a Homans sign. LABORATORY DATA: New blood work today shows her white count continued to be decreasing. Her H and H within normal. Her platelet count is still in the normal range, approximately 140,000 platelets. ASSESSMENT: Improving left lower extremity cellulitis. PLAN: At this point, we are going to continue with the IV antibiotics as I do believe that the patient has significantly improved over the last 48 hours. There does not appear to be any area which I feel was collecting purulent material that needs to be drained. Her swelling is way down. Her motion is way better. Therefore, we are going to allow her to eat. We will keep her n.p.o. after midnight again. We will continue with the current IV antibiotic regimen. We will continue giving her Lovenox 30 mg subcu b.i.d. for DVT prophylaxis and we are actually going to start her on some therapy today. Again, I will plan on checking her in the morning. Job ID: [id number]
[2020-01-15] MEDS: CeleCOXIB 100 MG CAP PO SCH ×2 (09:02→20:43)
[2020-01-15] MEDS: Enoxaparin Sodium 30 MG/0.3 ML SYRINGE SC SCH ×2 (09:03→20:43)
[2020-01-15] MEDS: Gabapentin 300 MG CAP PO SCH ×3 (09:03→20:43)
--- NOTE | 2020-01-15 09:36 | PRG ---
DATE OF SERVICE: 01/15/2020 SUBJECTIVE: Evie is a 64-year-old female, who is hospital day 3 for a left knee periprosthetic cellulitis. Dr. Escobedo has seen the patient and also agrees with the possibility of a deep infection with superficial manifestation. We are continuing the cefepime and vancomycin at this point, and pain has improved significantly, but her white count still is lingering just above 11. Her clinical course is a little suggestive of an indolent infection or an atypical bacterium and her response to the vancomycin and cefepime also confirms at least the superficial aspect of this is infectious in nature. OBJECTIVE: VITAL SIGNS: Temperature 97.8, pulse 55, blood pressure 167/72 and elevated, respiratory rate 15 and nonlabored, O2 saturations 95% on room air. GENERAL: She is alert, responsive, appropriate with examiner. She is not complaining of any pain at this point. EXTREMITIES: Her range of motion demonstrates about -3 to 4 of extension and flexion to about 85 or 90. Her knee examination demonstrates a very woody full examination and I cannot palpate any significant fluctuance, but certainly the knee is swollen as one would expect at this point postoperatively, but her bruising and cellulitis have significantly improved around the incision. There is no blistering. No breaks in the skin identified. Starting to reestablish skin lines, but again, grossly and relatively impressed with the stiffness and the woodiness of her tissues around the knee capsule. IMPRESSION: Certainly, a superficial cellulitis infectious in origin. However, I have not fully excluded the possibility of a deep intracapsular indolent infection. Her clinical course is suggestive of this in terms of her pre-hospital symptoms of slow to progress with therapy and not following an average clinical course. PLAN: 1. We will go ahead and order a PICC line. 2. Consult with [facility] hospitalist for evaluation of her blood pressure. 3. Regular diet for now and I will schedule her to see Dr. Evangelista in about a week or two, but we will do some discharge planning for outpatient IV vancomycin, cefepime after she receives her PICC line. She is very desirous to go home as her daughter will be coming in visiting from [place] today. Job ID: [id number]
--- NOTE | 2020-01-15 10:55 | SPC ---
Ultrasound and Fluoroscopic guided left upper extremity PICC placement HISTORY: Left knee infection. Patient needs long-term IV antibiotics. FINDINGS: Informed consent obtained prior to the procedure. An appropriate access site was determined with ultrasound guidance. The area was then meticulously pr epped and draped in usual sterile fashion. Skin overlying the left basilic vein anesthetized with 1% buffered lidocaine. Utilizing direct sonogr aphic guidance, vascular access is obtained via the left basilic vein, and an 0.018in guidewire was advanced to the distal SVC. Intravascular length is calculated at 41 cm, and the PICC is cut accordin gly. Needle is removed and replaced with a peel-away sheath. The PICC was advanced over the wire. Wire and peel-away sheath were removed. The tip of the catheter overlies the distal SVC. The catheter was accessed and aspirated/flushed easily. Exposure data: 0 minutes of fluoroscopic time 275 mGy centimeter squared FINDINGS: Technically successful placement of a 41 centimeter single lumen 4 [place] left upper extremity PICC l ine. IMPRESSION: Successful ultrasound guided placement of a left upper extremity PICC.
[2020-01-15] MEDS ORDERED: hydrALAZINE 20 MG/ML VIAL SLOW IVP PRN (14:38)
[2020-01-15] MEDS ORDERED: Amlodipine 10 MG TAB PO SCH (14:45)
[2020-01-15] MEDS ORDERED: ALPRAZolam 0.25 MG TAB PO PRN (15:34)
--- NOTE | 2020-01-15 16:34 | PDOC.HOSPP ---
- Subjective Encounter Date: 01/15/20 Encounter Time: 16:00 Subjective: pt up in bed wants to go home. she earlier felt anxious but currently feels well. - Objective Vital Signs & Weight: Vital Signs (12 hours) Temp Pulse Resp BP Pulse Ox 01/15/20 15:15 97.7 F 55 L 18 175/76 H 99 01/15/20 12:04 188/89 H 01/15/20 11:15 97.7 F 57 L 16 199/95 H 99 01/15/20 07:15 97.8 F 55 L 15 167/72 H 95 Weight Weight 184 lb 15.485 oz I&O: 01/14/20 01/15/20 01/16/20 06:59 06:59 06:59 Intake Total 2330 690 Output Total 0 Balance 2330 690 Result Diagrams: 01/15/20 07:45 Hospitalist ROS - Review of Systems Cardiovascular: denies: chest pain, palpitations, orthopnea, paroxysmal noc. dyspnea, edema, light headedness, other Gastrointestinal: denies: nausea, vomiting, abdominal pain, diarrhea, constipation, melena, hematochezia, other Genitourinary: denies: dysuria, frequency, incontinence, hematuria, retention, other - Medication Medications: Active Medications Generic Name Dose Route Start Last Admin Trade Name Freq PRN Reason Stop Dose Admin Hydrocodone Bitart/Acetaminophen 1 tab 01/12/20 19:09 01/15/20 04:07 [place] 10/325 PO 1 tab Q4H PRN Administration Moderate Pain (4-6) Hydrocodone Bitart/Acetaminophen 2 tab 01/12/20 19:09 01/15/20 12:03 [place] 10/325 PO 2 tab Q4H PRN Administration Severe Pain (7-10) Amlodipine Besylate 10 mg 01/15/20 14:45 01/15/20 15:14 Norvasc PO 01/15/20 16:45 10 mg NOW NOEL Administration Celecoxib 200 mg 01/13/20 09:00 01/15/20 09:02 Celebrex PO 200 mg BID NOEL Administration Enoxaparin Sodium 30 mg 01/14/20 09:00 01/15/20 09:03 Lovenox SC 30 mg 0900,2100 NOEL Administration Gabapentin 300 mg 01/12/20 21:00 01/15/20 14:13 Neurontin PO 300 mg TID NOEL Administration Cefepime HCl 2 gm/ Sodium 100 mls @ 200 mls/hr 01/13/20 15:00 01/15/20 14:13 Chloride IVPB 100 mls 0300,1500 NOEL Administration Vancomycin HCl 1.5 gm/ Device 300 mls @ 200 mls/hr 01/14/20 17:00 01/15/20 04 :45 IVPB 300 mls 0500,1700 NOEL Administration Pramipexole Dihydrochloride 0.5 mg 01/12/20 21:31 01/14/20 18:15 Mirapex PO 0.5 mg BID PRN Administration RESTLESS LEG - Exam Heart: negative: RRR, no murmur, no gallops, no rubs, normal peripheral pulses, irregular, diminshed peripheral pulses, murmur present, II/IV, III/IV Respiratory: negative: CTAB, no wheezes, no rales, no ronchi, normal chest expansion, no tachypnea, normal percussion, rales, rhonchi, tachypneic, wheezes Gastrointestinal: negative: soft, non-tender, non-distended, normal bowel sounds , no palpable masses, no hepatomegaly, no splenomegaly, no bruit, no guarding, no rigidity, tender to palpation, distended, diminished bowl sounds, voluntary guarding Extremities - other findings: left knee significant swelling Hosp A/P (1) Swelling of left knee joint Code(s): M25.462 - EFFUSION, LEFT KNEE Status: Acute (2) Osteoarthritis Code(s): M19.90 - UNSPECIFIED OSTEOARTHRITIS, UNSPECIFIED SITE Status: Chronic Qualifiers: (3) HTN (hypertension) Code(s): I10 - ESSENTIAL (PRIMARY) HYPERTENSION Status: Acute - Plan medicine was consulted for elevated bp. After talking with the patient she states that her daughter was coming in from [place], [place] to come visit her for 2 days and now she is in the hospital. She also was upset and thought she was going to have surgery but she only had a I&D done. I have put in prn for bp and given her one dose of Norvasc. will also put in prn xanax as needed. I believe her htn is situational and will resolve.
[2020-01-15 16:39] LABS: Vancomycin, Trough 16.2 ug/mL
[2020-01-15] MEDS: Pramipexole Di-HCl 0.25 MG TAB PO PRN (17:06)
[2020-01-15 22:57] LABS: Bacteria/HPF None Seen HPF (None Seen); Bilirubin Negative (Negative); Blood, Urine Negative (Negative); Clarity Clear (Clear); Glucose, Urine (Dipstick) Normal (Negative); Leukocyte Negative Leu/uL (Negative); Nitrite Negative (Negative); Protein, Urine (Dipstick) Negative (Neg-Trace); RBC/HPF 0-3 HPF (0-3); Squamous Epithelial None Seen HPF (0-3); Urobilinogen Normal mg/dL (Less than 2); WBC/HPF 0-3 HPF (0-3)
[2020-01-15 22:59] LABS: Urine Culture Reflex No No
[2020-01-16] MEDS: Cefepime 2 GM in Sodium Chloride 0.9% 100 ML IVPB SCH ×2 (03:28→14:58)
[2020-01-16] MEDS: Vancomycin 1.5 GRAM/300 ML BAG 1.5 GM in Premix Bag 1 BAG IVPB SCH ×2 (05:31→17:01)
[2020-01-16] MEDS: HYDROcodone/Acetaminophen 10/325 mg Tablet PO PRN ×2 (05:38→12:18)
[2020-01-16] MEDS: Enoxaparin Sodium 30 MG/0.3 ML SYRINGE SC SCH (09:33)
[2020-01-16] MEDS: CeleCOXIB 100 MG CAP PO SCH (09:33)
[2020-01-16] MEDS: Gabapentin 300 MG CAP PO SCH ×2 (09:33→14:58)
[2020-01-16 12:40] LABS: BUN (Urea Nitrogen) 11 mg/dL (9.8-20.1); Calc. Creatinine Clearance 126 mL/min (70-130); Estimated GFR-MDRD Greater than 90
[2020-01-16] MEDS ORDERED: Amlodipine 10 MG TAB PO SCH (15:30)
[2020-01-16] MEDS: Pramipexole Di-HCl 0.25 MG TAB PO PRN (17:01)
[2020-01-16] MEDS ORDERED: Pantoprazole 40 MG VIAL IVP SCH (17:30)
[2020-01-16 19:29] VITALS: TEMP 98
[2020-01-16 19:40] VITALS: BP 155/79
--- NOTE | 2020-01-17 09:43 | PQF ---
GARY RODRIGUEZ KARISHMA [id number] SURG A- [id number] CLINICAL DOCUMENTATION CLARIFICATION FORM: POST DISCHARGE Addendum to original discharge summary date: ____ Late entry note date: __ PLEASE SENT TO SURGEON. I WAS CONSULTED FOR HTN DATE:01/17/2020 ATTN: Polina Lai Please exercise your independent, professional judgment in responding to the clarification form. Clinical indicators are provided on the bottom of this form for your review Please check appropriate box(s): [ ] Cellulitis is a Superficial wound site postoperative complication of TKA [ ] Cellulitis is a Deep infection due to device of TKA [ ] Cellulitis is not a complication of procedure [ ] Other diagnosis [ ] Unable to determine CLINICAL INDICATORS - SIGNS / SYMPTOMS / LABS Laboratory 01/12 WBC 11.7, Plt count 194, neutrophils 46.3 Vital signs 01/12 BP 189/76, pulse 62, Resp 16, temp 97.9 H&P p1 01/12 DR Orellana s/p TKA, pt had relatively uneventful postoperative course except for some hyperesthesia of anterior knee Consult p2 01/12 Recent total knee replacement with inflammatory changes in the anterior aspect of the total knee replacement skin with bruising, erythema, tenderness Consult p2 01/12 The evidence at hand argues in favor of an infection of the structures surrounding the joint in the anterior compartment rather than Within the joint itself. PN p1 01/14 Certainly, a superficial cellulitis infectious in origin RISK FACTORS H&P p1 01/12 64 year-old Female H&P p1 01/12 Osteoarthritis H&P p1 01/12 RLS H&P p1 01/12 recently knee replacement H&P p1 01/12 Cellulitis TREATMENT: NOV 13 IV Vancomycin NOV 13 IV Cefepime 2gm NOV 13 IV Morphine 4mg NOV 13 Celecoxib 200 mg oral Arthrocentesis 01/12 ID consult 01/11 Iker Moore PICC for antibiotics 01/14 (This form is maintained as a part of the permanent medical record) 2014 [employer]. All Rights Reserved [email or web address]
--- NOTE | 2020-01-17 15:10 | DIS ---
DATE OF ADMISSION: 01/12/2020 DATE OF DISCHARGE: 01/16/2020 PREHOSPITAL AND POSTHOSPITAL DIAGNOSIS: Knee cellulitis, left. PROCEDURES: PICC line placement. HOSPITAL COURSE: The patient was evaluated by Dr. Pavel Evangelista and Dr. Escobedo. Her knee cellulitis continued to markedly get better throughout her stay as did her activity and her pain. She was discharged on the . Dr. Escobedo would follow her and did prescribe home IV antibiotics. She will follow up with Dr. Evangelista in 7 to 10 days. If symptoms are worsened or any questions or concern, she was directed to call the office. There were no hospital complications. DISCHARGE CONDITION: Stable. Job ID: [id number]
[2020-01-20] MEDS ORDERED: Estradiol 1 MG TAB PO SCH (09:00)
--- NOTE | 2020-01-20 15:20 | PQF ---
CLINICAL DOCUMENTATION IMPROVEMENT CLARIFICATION FORM: ICD-10 Updated PLEASE DO AN ADDENDUM TO THE PROGRESS NOTE WITH ANY DOCUMENTATION UPDATES OR ADDITIONS AND CARRY THROUGH TO DC SUMMARY. THANK YOU. DATE: 01/20/20 ATTN: NATE HERNÁNDEZ Please exercise your independent, professional judgment in responding to the clarification form. Clinical indicators are provided on the bottom of this form for your review Please check appropriate box(s) to clarify if the following diagnosis has been ruled in or ruled out: SEPSIS [ ] Ruled in diagnosis [ ] Continue to treat [ ] Resolved [ ] Ruled out diagnosis [ ] Improving [ ] Cannot rule out diagnosis [ ] Other diagnosis [ ] Unable to determine In addition, please specify: Present on Admission (POA): [ ] Yes [ ] No [ ] Unable to determine For continuity of documentation, please document condition throughout progress notes and discharge summary. Thank You. CLINICAL INDICATORS - SIGNS / SYMPTOMS / LABS / RESULTS AND LOCATION IN MR ER NOTE: "SEPSIS WITH CELLULITIS LEFT KNEE" WBC 18.8 (H&P) WBC /: 11.7 CRP / 0.72 CRP /: 1.38 RISKS: RECENT TKR NOVEMBER 24 CELLULITIS LEFT KNEE (H&P) TREATMENT: IV VANCOMYCIN (01/13) IV CEFEPIME (01/12-PRESENT) [employer](This form is maintained as a part of the permanent medical record) 2014 [employer]. All Rights Reserved [email or web address]
== END 2020-01-16 20:00 | disposition home health service (06) | DRG 603 ==
LOC: ERS 17:43 → SURG A 19:18 → OBSVTOIN 19:18
PROVIDERS: ADMIT Orthopaedic Surgery; ATTEND Orthopaedic Surgery
PROC: 0S9D3ZZ Drainage of Left Knee Joint, Percutaneous Approach (ICD-10-PCS; principal; 2020-01-12)
PROC: 02HV33Z Insertion of Infusion Device into Superior Vena Cava, Percutaneous Approach (ICD-10-PCS; 2020-01-15)
PROC: B518ZZA Fluoroscopy of Superior Vena Cava, Guidance (ICD-10-PCS; 2020-01-15)
PROC: B548ZZA Ultrasonography of Superior Vena Cava, Guidance (ICD-10-PCS; 2020-01-15)
DX: L03.116 Cellulitis of left lower limb (principal); G25.81 Restless legs syndrome; M19.90 Unspecified osteoarthritis, unspecified site; Z96.652 Presence of left artificial knee joint; Z79.899 Other long term (current) drug therapy; Z90.710 Acquired absence of both cervix and uterus; Z85.828 Personal history of other malignant neoplasm of skin
CPT/HCPCS: 20610; 36415; 36569; 71045; 80202; 81001; 82565; 84520; 85025; 85610; 85652; 85730; 86140; 93005; 96374; C1751; J0360; J0692; J0696; J1650; J2270; J3370; J3490; J7050

== ENCOUNTER 2021-10-28 12:56 | Outpatient (CLI) | payer MEDICARE, BC | END 2021-10-28 12:57 | disposition home or self-care (01) | LOC: BICULT 12:56 | PROVIDERS: ATTEND Orthopaedic Surgery | DX: M25.562 Pain in left knee (principal) ==

== ENCOUNTER 2023-11-22 20:57 | Inpatient (IN) | payer MEDICARE, BC ==
[~2023-11-22 20:57] MED LIST: Iopamidol 370 76% 100 ML VIAL ONE
[2023-11-22] MEDS ORDERED: fentaNYL 50 mcg/mL 1 mL Vial ONE ×2 (21:14→23:33)
[2023-11-22] MEDS ORDERED: Ondansetron PF 4 MG/2 ML Vial ONE (21:14)
[2023-11-22] MEDS ORDERED: Ondansetron PF 4 MG/2 ML Vial IVP PRN (23:10)
[2023-11-22] MEDS ORDERED: hydrALAZINE 20 MG/ML VIAL SLOW IVP PRN (23:10)
[2023-11-22] MEDS ORDERED: Ipratropium/Albuterol 3 ML NEB NEB PRN (23:10)
[2023-11-22] MEDS ORDERED: traMADol HCl 50 MG TAB PO PRN (23:21)
[2023-11-22] MEDS ORDERED: Cyclobenzaprine 10 MG TAB PO PRN (23:22)
[2023-11-22] MEDS ORDERED: Morphine 2 MG/ML VIAL SLOW IVP PRN (23:22)
[2023-11-22] MEDS ORDERED: Ketorolac Tromethamine 30 MG (1 mL) VIAL ONE (23:33)
[2023-11-22 23:53] LABS: Hematocrit 33.2 % (36.0-47.0); Hemoglobin 10.8 g/dL (12.0-16.0); Manual Diff?? YES; Mean Corpuscular HGB CONC 32.5 g/dL (32.0-36.0); Mean Corpuscular Hemoglobin 29.9 pg (27.0-31.0); Mean Platelet Volume 11.3 fL (7.4-10.4); Platelet Count 174 10x3/uL (130-400); RBC Distribution Width 12.8 % (11.5-14.5); Red Blood Cell (RBC) Count 3.61 mill/uL (4.20-5.40); White Blood Cell (WBC) Count 44.2 10x3/uL (4.8-10.8)
[2023-11-22 23:56] LABS: Delete Auto Diff?? YES
[2023-11-23 00:11] LABS: PTT 24.6 sec (22.9-36.1); Prothrombin Time 13.3 sec (12.0-14.7)
[2023-11-23 00:16] LABS: Band 15 % (5-11); CellaVision Operator ID LAB.CLH1; Hypochromia SLIGHT = 6-15 cells HPF (0-5); Lactic Acid 2.6 mmol/L (0.5-2.2); Large Platelets 1.9 % (0-5); Lymphocytes 23 % (21-51); Monocytes 1 % (0-10); Neutrophil 61 % (42-75); Platelet Adequacy Comment Platelets Normal; Polychromasia SLIGHT = 2-3 cells HPF (0-2); Total Cell Count 103
[2023-11-23 00:18] LABS: ALT (SGPT) 16 U/L (8-55); AST (SGOT) 17 U/L (5-34); Albumin 3.6 g/dL (3.4-4.8); Alkaline Phosphatase 53 U/L (40-110); Anion Gap 13 mmol/L (10-20); BUN (Urea Nitrogen) 15 mg/dL (9.8-20.1); Bilirubin, Total 0.4 mg/dL (0.2-1.2); Calc. Creatinine Clearance 0 mL/min (70-130); Calcium 8.4 mg/dL (7.8-10.44); Carbon Dioxide 23 mmol/L (23-31); Chloride 104 mmol/L (98-107); Estimated GFR 89; Globulin 2.2 g/dL (2.4-3.5); Glucose 121 mg/dL (80-115); Potassium 3.8 mmol/L (3.5-5.1); Protein, Total 5.8 g/dL (5.8-8.1); Sodium 136 mmol/L (136-145)
[2023-11-23] MEDS: Acetaminophen 500 MG TAB PO SCH (00:52)
[2023-11-23] MEDS: Ketorolac Tromethamine 30 MG (1 mL) VIAL IVP SCH ×2 (00:52→06:10)
[2023-11-23] MEDS: Sodium Chloride 0.9% 1,000 ML IV SCH (00:53)
[2023-11-23] MEDS: traMADol HCl 50 MG TAB PO SCH (00:53)
[2023-11-23] MEDS: Scopolamine 1 mg/72 hour Patch TD SCH (00:53)
[2023-11-23 06:20] VITALS: BMI 23.6
[2023-11-23 06:50] LABS: Hematocrit 28.9 % (36.0-47.0); Hemoglobin 9.4 g/dL (12.0-16.0); Manual Diff?? YES; Mean Corpuscular HGB CONC 32.5 g/dL (32.0-36.0); Mean Corpuscular Hemoglobin 29.9 pg (27.0-31.0); Mean Platelet Volume 11.4 fL (7.4-10.4); Platelet Count 160 10x3/uL (130-400); RBC Distribution Width 12.9 % (11.5-14.5); Red Blood Cell (RBC) Count 3.14 mill/uL (4.20-5.40); White Blood Cell (WBC) Count 36.3 10x3/uL (4.8-10.8)
[2023-11-23 07:06] LABS: Delete Auto Diff?? YES
[2023-11-23 07:16] LABS: Anion Gap 11 mmol/L (10-20); BUN (Urea Nitrogen) 18 mg/dL (9.8-20.1); Calc. Creatinine Clearance 82 mL/min (70-130); Carbon Dioxide 24 mmol/L (23-31); Chloride 106 mmol/L (98-107); Estimated GFR 88; Glucose 110 mg/dL (80-115); Potassium 4.2 mmol/L (3.5-5.1); Sodium 137 mmol/L (136-145)
[2023-11-23 07:35] LABS: Band 4 % (5-11); CellaVision Operator ID LAB.KW3; Lymphocytes 25 % (21-51); Neutrophil 71 % (42-75); Platelet Adequacy Comment Platelets Normal; RBC Morphology Within Normal Limits; Total Cell Count 99
[2023-11-23] MEDS: Senokot S 8.6-50 MG TAB PO SCH (08:43)
[2023-11-23] MEDS: Gabapentin 100 MG CAP PO SCH (08:44)
[2023-11-23] MEDS: Polyethylene Glycol 3350 17 GM Packet PO SCH (08:46)
[2023-11-23] MEDS: Famotidine/PF 20 mg/2ml Vial SLOW IVP SCH (08:47)
[2023-11-23 11:16] VITALS: BP 154/91; TEMP 98.4
[2023-11-24] MEDS ORDERED: Pramipexole Di-HCl 0.25 MG TAB PO SCH (17:00)
[2023-11-26] MEDS ORDERED: FLU VACC QS2023(65UP)/MF59C/PF 60 MCG/0.5 ML SYRINGE IM ONE (09:00)
== END 2023-11-23 15:20 | disposition home or self-care (01) | DRG 184 ==
LOC: ERS 20:57 → SURG B 23:12
PROVIDERS: ADMIT Surgery; ATTEND Surgery
DX: S22.41XA Multiple fractures of ribs, right side, initial encounter for closed fracture (principal); C95.90 Leukemia, unspecified not having achieved remission; S62.306A Unspecified fracture of fifth metacarpal bone, right hand, initial encounter for closed fracture; G25.81 Restless legs syndrome; I10 Essential (primary) hypertension; Z96.652 Presence of left artificial knee joint; Z90.710 Acquired absence of both cervix and uterus; Z90.89 Acquired absence of other organs; Z79.899 Other long term (current) drug therapy; Z98.890 Other specified postprocedural states; Z88.8 Allergy status to other drugs, medicaments and biological substances; V43.92XA Unspecified car occupant injured in collision with other type car in traffic accident, initial encounter
CPT/HCPCS: 29125; 36415; 70450; 71045; 71260; 72125; 74177; 80048; 80053; 83605; 85025; 85610; 85730; 86850; 86900; 86901; 93005; 96374; 96375; G0390; J1885; J2405; J3010; J7050; Q9967; S0028

== ENCOUNTER 2024-03-01 16:34 | Observation (INO) | payer MEDICARE, BC ==
[~2024-03-01 16:34] MED LIST changes: -Iopamidol 370 76% 100 ML VIAL ONE; +Iopamidol-370 76% 500 ML MDV (1 ML CHARGE) ONE
[2024-03-01 17:44] LABS: Hematocrit 22.9 % (36.0-47.0); Hemoglobin 7.3 g/dL (12.0-16.0); Mean Corpuscular HGB CONC 31.9 g/dL (32.0-36.0); Mean Corpuscular Hemoglobin 29.7 pg (27.0-31.0); Mean Corpuscular Volume 93.1 fL (78.0-98.0); Mean Platelet Volume 11.1 fL (7.4-10.4); Platelet Count 195 10x3/uL (130-400); RBC Distribution Width 14.4 % (11.5-14.5); Red Blood Cell (RBC) Count 2.46 mill/uL (4.20-5.40)
[2024-03-01 17:55] LABS: ALT (SGPT) 11 U/L (8-55); AST (SGOT) 12 U/L (5-34); Albumin 3.4 g/dL (3.4-4.8); Alkaline Phosphatase 57 U/L (40-110); Anion Gap 10 mmol/L (10-20); BUN (Urea Nitrogen) 19 mg/dL (9.8-20.1); Bilirubin, Total 0.3 mg/dL (0.2-1.2); Calc. Creatinine Clearance 0 mL/min (70-130); Calcium 8.5 mg/dL (7.8-10.44); Carbon Dioxide 24 mmol/L (23-31); Chloride 104 mmol/L (98-107); Estimated GFR 77; Globulin 2.7 g/dL (2.4-3.5); Glucose 95 mg/dL (80-115); Potassium 4.3 mmol/L (3.5-5.1); Protein, Total 6.1 g/dL (5.8-8.1); Sodium 134 mmol/L (136-145)
[2024-03-01 18:01] LABS: Troponin I Less than 0.010 ng/mL (< 0.028)
[2024-03-01 18:02] LABS: Reflex for Review?? YES
[2024-03-01 18:05] LABS: Band 2 % (5-11); Eosinophils 4 % (0-10); Hypochromia MODERATE=16-30 cells HPF (0-5); Lymphocytes 47 % (21-51); Monocytes 1 % (0-10); Neutrophil 46 % (42-75); Platelet Adequacy Comment Platelets Normal; Polychromasia SLIGHT = 2-3 cells HPF (0-2)
[2024-03-01 19:16] LABS: Bilirubin Negative (Negative); Blood, Urine Trace (Negative); Glucose, Urine (Dipstick) Negative (Negative); Ketone, Urine Negative (Negative); Leukocyte Negative (Negative); Nitrite Negative (Negative); Protein, Urine (Dipstick) Negative (Neg-Trace); Urobilinogen 0.2 mg/dL (Less than 2)
[2024-03-01 19:28] LABS: Clarity Clear (Clear)
[2024-03-01 19:39] LABS: CAUTI Indications for Culture Dysuria,urgency,freq; RBC/HPF None Seen HPF (0-3); Squamous Epithelial 0-3 HPF (0-3); WBC/HPF None Seen HPF (0-3)
[2024-03-01 19:40] LABS: Bacteria/HPF None Seen HPF (None Seen); Urine Culture Reflex No No
[2024-03-01] MEDS ORDERED: Ondansetron ODT 4 MG TAB PO PRN (21:53)
[2024-03-01] MEDS ORDERED: Acetaminophen 325 MG TAB PO PRN (21:53)
[2024-03-01] MEDS ORDERED: Cyclobenzaprine 10 MG TAB PO PRN (22:24)
[2024-03-01 22:39] LABS: Troponin I Less than 0.010 ng/mL (< 0.028)
[2024-03-02 00:02] VITALS: BMI 28.0
[2024-03-02 01:53] LABS: Hematocrit 22.6 % (36.0-47.0); Hemoglobin 7.3 g/dL (12.0-16.0); Mean Corpuscular HGB CONC 32.3 g/dL (32.0-36.0); Mean Corpuscular Hemoglobin 30.5 pg (27.0-31.0); Mean Corpuscular Volume 94.6 fL (78.0-98.0); Mean Platelet Volume 10.8 fL (7.4-10.4); Platelet Count 161 10x3/uL (130-400); RBC Distribution Width 14.1 % (11.5-14.5); Red Blood Cell (RBC) Count 2.39 mill/uL (4.20-5.40)
[2024-03-02 02:08] LABS: ALT (SGPT) 10 U/L (8-55); AST (SGOT) 9 U/L (5-34); Albumin 3.1 g/dL (3.4-4.8); Alkaline Phosphatase 51 U/L (40-110); Anion Gap 13 mmol/L (10-20); BUN (Urea Nitrogen) 15 mg/dL (9.8-20.1); Bilirubin, Total 0.3 mg/dL (0.2-1.2); Calc. Creatinine Clearance 106 mL/min (70-130); Calcium 8.6 mg/dL (7.8-10.44); Carbon Dioxide 24 mmol/L (23-31); Chloride 102 mmol/L (98-107); Estimated GFR 94; Globulin 2.4 g/dL (2.4-3.5); Glucose 111 mg/dL (80-115); Potassium 3.5 mmol/L (3.5-5.1); Protein, Total 5.5 g/dL (5.8-8.1); Sodium 135 mmol/L (136-145)
[2024-03-02 02:14] LABS: Troponin I 0.012 ng/mL (< 0.028)
[2024-03-02 02:24] LABS: Eosinophils 2 % (0-10); Hypochromia SLIGHT = 6-15 cells HPF (0-5); Lymphocytes 61 % (21-51); Metamyelocyte 1 % (0-0); Monocytes 1 % (0-10); Neutrophil 34 % (42-75); Platelet Adequacy Comment Platelets Normal; Polychromasia SLIGHT = 2-3 cells HPF (0-2)
[2024-03-02 03:32] LABS: PTT 23.7 sec (22.9-36.1)
[2024-03-02 05:40] LABS: Hematocrit 23.4 % (36.0-47.0); Hemoglobin 7.6 g/dL (12.0-16.0); Platelet Count 159 10x3/uL (130-400)
[2024-03-02 06:09] LABS: Troponin I Less than 0.010 ng/mL (< 0.028)
[2024-03-02] MEDS ORDERED: Enoxaparin 40 MG (0.4 mL) SYRINGE SC SCH (09:00)
[2024-03-02 09:34] LABS: Troponin I Less than 0.010 ng/mL (< 0.028)
[2024-03-02] MEDS: Hydrochlorothiazide 25 MG TAB PO SCH (11:46)
[2024-03-02 12:13] VITALS: BP 131/63; TEMP 97.5
[2024-03-02] MEDS ORDERED: Pramipexole Di-HCl 0.25 MG TAB PO SCH (21:00)
[2024-03-03] MEDS ORDERED: Hydrochlorothiazide 25 MG TAB PO SCH ×2 (09:00)
== END 2024-03-02 16:49 | disposition home or self-care (01) ==
LOC: ERS 16:34 → 2SW 21:44
PROVIDERS: ADMIT Internal Medicine; ATTEND Internal Medicine
PROC: B246ZZZ Ultrasonography of Right and Left Heart (ICD-10-PCS; principal; 2024-03-02)
DX: R06.02 Shortness of breath (principal); I08.1 Rheumatic disorders of both mitral and tricuspid valves; R07.89 Other chest pain; R53.1 Weakness; R04.0 Epistaxis; D64.9 Anemia, unspecified; C85.90 Non-Hodgkin lymphoma, unspecified, unspecified site; I10 Essential (primary) hypertension; Z96.652 Presence of left artificial knee joint; Z90.89 Acquired absence of other organs; Z90.710 Acquired absence of both cervix and uterus; Z88.5 Allergy status to narcotic agent
CPT/HCPCS: 36430; 71045; 71275; 80053 ×2; 81001; 83605; 83690; 83880; 84145; 84484 ×4; 85014; 85018; 85025 ×2; 85049; 85610; 85730; 86850; 86870; 86900; 86901; 86902; 86905; 86920; 86922; 87040; 93005; 93306; 99285; P9016; Q9967; 36415; 85060; G0378